=== PATIENT | female | born 1995 | race Caucasian/White ===

== ENCOUNTER 2023-03-12 21:36 | Emergency (ER) | payer OTHER ==
[~2023-03-12] VITALS: Ht 165.1 cm; Wt 131.5 kg
[2023-03-12 21:40] VITALS: BP 121/80; PULSE 92; RESP 19; TEMP 97.7; O2SAT 96
--- NOTE | 2023-03-12 21:40 | NUR ---
TO BED AMBULATORY
[2023-03-12] MEDS ORDERED: ALBUTEROL SULFATE/IPRATROPIU 3 ML SOL IH ONE (22:20)
--- NOTE | 2023-03-12 22:25 | NUR ---
Labs collected and sent to lab
[2023-03-12 22:30] VITALS: PULSE 79; RESP 16; O2SAT 96; O2SAT 97
--- NOTE | 2023-03-12 22:30 | NUR ---
RT by bedside at this time
[2023-03-12 22:33] LABS: BASOPHILS % (AUTO) 0.4 % (0.0-2.0); EOSINOPHILS # (AUTO) 0.2 K/uL (0-0.4); EOSINOPHILS % (AUTO) 2.3 % (0.0-4.0); HEMATOCRIT 37.4 % (36-48); HEMOGLOBIN 12.8 g/dL (12.0-16.0); LYMPHOCYTES # (AUTO) 2.7 K/uL (2.5-16.5); LYMPHOCYTES % (AUTO) 26.2 % (20.5-51.1); MEAN CORPUSCULAR HEMOGLOBIN 28 pg (27-31); MEAN CORPUSCULAR HGB CONC 34 g/dL (33-37); MEAN CORPUSCULAR VOLUME 82.5 fL (80-94); MONOCYTES # (AUTO) 0.6 K/uL (0.8-1.0); MONOCYTES % (AUTO) 6.3 % (1.7-9.3); NEUTROPHILS # (AUTO) 6.7 K/uL (1.8-7.7); NEUTROPHILS % (AUTO) 64.8 % (42.2-75.2); PLATELET COUNT (AUTO) 322 K/uL (140-450); RED BLOOD CELL COUNT(AUTO) 4.53 MIL/uL (4.20-5.40); WHITE BLOOD COUNT (AUTO) 10.3 K/uL (4.8-10.8)
--- NOTE | 2023-03-12 22:47 | NUR ---
CALLED TO BESIDE TO ASSESS PT AND GIVE BREATHING TXN. FOUND PT ON 1LDUE TO LOW SATURATION. ON 1L SATURATION IS 97%. pATIENT COMPLAIND OF SOB. FEELS PRESSURE ON CHEST. BREATH SOUNDS ARE DEMINISHED. NO CHANGE POST TREATMENT BUT PT STATES BREATHING IS MUCH EASIER NOW. 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
[2023-03-12 22:51] LABS: ALBUMIN 3.1 g/dL (3.4-5.0); ANION GAP 13.8 (8-16); CREATININE 0.9 mg/dL (0.6-1.3); POTASSIUM 3.8 mmol/L (3.5-5.1); TOTAL BILIRUBIN 0.1 mg/dL (0.0-1.0)
--- NOTE | 2023-03-12 23:00 | NUR ---
Xray by bedside.
[2023-03-12] MEDS ORDERED: ALBU0.0912 INH (23:39)
[2023-03-12] MEDS ORDERED: PRED20TA5 PO (23:39)
[2023-03-12] MEDS ORDERED: AZIT250T4 PO (23:39)
[2023-03-12 23:45] VITALS: BP 121/80; PULSE 79; RESP 16; TEMP 97.7; O2SAT 96
--- NOTE | 2023-03-12 23:48 | NUR ---
Patient discharged with v/s stable. Written and verbal after care instructions given and explained. New rx proventil, azithromycin, prednisone. Patient verbalized understanding. Ambulatory with steady gait. All questions addressed prior to discharge. Advised to follow up with PMD.
== END 2023-03-12 23:48 | disposition home or self-care (01) ==
LOC: MED 21:36
DX: J45.901 Unspecified asthma with (acute) exacerbation (principal); J18.9 Pneumonia, unspecified organism; Z79.899 Other long term (current) drug therapy
CPT/HCPCS: 36415; 71045; 80053; 85025; 85379; 94640; 99284; Q0092

== ENCOUNTER 2024-03-18 12:09 | Emergency (ER) | payer OTHER ==
[~2024-03-18] VITALS: Ht 165.1 cm; Wt 131.5 kg
[~2024-03-18 12:09] MED LIST: ALBU0.0912 INH; AZIT250T4 PO; PRED20TA5 PO
[2024-03-18 12:23] VITALS: BP 139/91; PULSE 89; RESP 18; TEMP 97.6; O2SAT 96
[2024-03-18] MEDS: methylPREDNISolone SS 125 MG/2 ML VIAL IM ONE (12:38)
[2024-03-18] MEDS: ACETAMINOPHEN EXTRA STRENGTH 500 MG TAB PO ONE (12:50)
[2024-03-18] MEDS: ALBUTEROL SULFATE/IPRATROPIU 3 ML SOL IH ONE (12:50)
[2024-03-18 12:51] VITALS: PULSE 85; RESP 24; O2SAT 98
[2024-03-18] MEDS ORDERED: PROM118S5 PO (13:54)
[2024-03-18] MEDS ORDERED: PRED20TA5 PO (13:54)
[2024-03-18] MEDS ORDERED: BENZ150C7 PO (13:54)
[2024-03-18 14:20] VITALS: BP 139/91; PULSE 85; RESP 24; TEMP 97.6; O2SAT 98
== END 2024-03-18 14:20 | disposition home or self-care (01) ==
LOC: MED 12:09
DX: J45.909 Unspecified asthma, uncomplicated (principal); Z79.899 Other long term (current) drug therapy
CPT/HCPCS: 71045; 94640; 96372; 99283; J2919